=== PATIENT | female | born 1970 | race African-American/Black ===

== ENCOUNTER 2016-11-11 11:16 | Day surgery (SDC) | payer OTHER ==
[~2016-11-11] VITALS: Ht 172.7 cm; Wt 113.3 kg
[2016-11-11 12:09] VITALS: Ht 172.7 cm; Wt 113.3 kg
[2016-11-11] MEDS ORDERED: HTN MED PO (12:14)
[2016-11-11 12:33] VITALS: BP 127/60; PULSE 73; RESP 18
[2016-11-11] MEDS ORDERED: PROPOFOL 40 ML ONE (12:52)
[2016-11-11 13:30] VITALS: BP 140/75; PULSE 64; RESP 16
--- NOTE | 2016-11-11 13:35 | GILP ---
DATE OF PROCEDURE: 11/11/2016 NAME OF PROCEDURE: Esophagogastroduodenoscopy and biopsy. SURGEON: Derian Michel MD PREOPERATIVE DIAGNOSES: 1. Abdominal pain. 2. Chronic heartburn. POSTOPERATIVE DIAGNOSES: 1. Hiatal hernia. 2. Gastroesophageal reflux disease. 3. Gastritis with erosions. 4. Gastric mucosal biopsies were taken for Helicobacter pylori test. INDICATION FOR THE PROCEDURE: Ms. Breanna Bowers is a 46-year-old female patient who had upper abdo katerina pain and chronic heartburn, not responding to therapy. The patient was scheduled for endoscop ic examination for further evaluation. The procedure and possible complications were well explained to the patient. The patient understood and consented to the procedure. DESCRIPTION OF PROCEDURE: Under the influence of anesthesia, the gastroscope was carefully introduc ed into the esophagus, and under direct vision, it was advanced to the stomach, through the pylorus into the duodenal bulb and descending duodenum. FINDINGS: ESOPHAGUS: The patient had hiatal hernia and gastroesophageal reflux disease. STOMACH: She had gastritis with erosions. Gastric mucosal biopsies were taken for H. pylori test. DUODENUM: Normal. The patient tolerated the procedure very well and there was no complication from the procedure. At the end of the procedures, she was awake with stable vital signs and she was discharged home to the care of her family. IMPRESSION: 1. Hiatal hernia. 2. Gastroesophageal reflux disease. 3. Gastritis with erosions. 4. Gastric mucosal biopsies were taken for Helicobacter pylori test. PLAN: 1. Pantoprazole 40 mg p.o. every morning. 2. Await H. pylori test report. Dictated By: DERIAN HFUF/LALI Conf#: [id number] DID#: [id number]
== END 2016-11-11 15:24 | disposition home or self-care (01) ==
LOC: GIL 11:16
PROVIDERS: ATTEND Internal Medicine Gastroenterology
DX: K44.9 Diaphragmatic hernia without obstruction or gangrene (principal); K21.9 Gastro-esophageal reflux disease without esophagitis; K29.60 Other gastritis without bleeding; I10 Essential (primary) hypertension; E66.01 Morbid (severe) obesity due to excess calories; Z68.38 Body mass index [BMI] 38.0-38.9, adult
CPT/HCPCS: 43239; 87081; Z7610